=== PATIENT | male | born 1955 | race Caucasian/White ===

== ENCOUNTER → 2016-08-21 | Outpatient (CLI) | payer BC ==
[~2016-08-21] MED LIST: DOXYCYCLINE 10100 MG PO; NORCO 325 MG-7.1 TAB PO; XARELTO20 MG PO
== END ==
LOC: COL.LAB 10:50
DX: Z86.14 Personal history of Methicillin resistant Staphylococcus aureus infection (principal)

== ENCOUNTER → 2017-03-25 | Outpatient (CLI) | payer BC | LOC: ZCOL.LAB 16:28 | DX: Z11.8 Encounter for screening for other infectious and parasitic diseases (principal) ==

== ENCOUNTER 2023-05-04 06:57 | Day surgery (SDC) | payer MEDICARE, OTHER ==
[~2023-05-04] VITALS: Ht 170.5 cm; Wt 98.0 kg
[2023-05-04] VITALS (10 sets, daily range): BP systolic 103–130; BP diastolic 62–80; PULSE 50–62; TEMP 98
[2023-05-04 07:56] LABS: BASO # 0.1 K/mm3 (0.0-0.2); BASO % 1.2 % (0.0-2.0); EOS # 0.4 K/mm3 (0.0-0.7); EOS % 5.1 % (0.0-4.0); GRAN # 4.5 K/mm3 (1.4-6.5); GRAN % 58.9 % (42.2-75.2); HEMATOCRIT 40.5 % (42.0-52.0); HEMOGLOBIN 14.5 g/dl (13.5-18.0); LYMPH # 1.7 K/mm3 (1.2-3.4); LYMPH % 22.4 % (20.0-51.0); MEAN CELL VOLUME 95 fl (80.0-100.0); MEAN CORPUSCULAR HEMOGLOBIN 34 pg (27-31); MEAN CORPUSCULAR HGB CONC 36 g/dl (33.0-37.0); MONO # 0.9 K/mm3 (0.1-0.6); PLATELET COUNT 213 K/mm3 (130-400); RED BLOOD COUNT 4.26 M/mm3 (4.20-5.60); REDCELL DISTRIBUTION WIDTH-CV 12.9 % (11.5-14.5)
[2023-05-04 08:09] LABS: INR 1.1 (0.8-3.0); PROTHROMBIN TIME 12.5 SECONDS (9.7-12.8)
[2023-05-04 08:13] LABS: CALCIUM 9.4 mg/dL (8.4-10.2); CREATININE, serum 1.09 mg/dL (0.72-1.25); POTASSIUM 4.1 mmol/L (3.5-4.5)
[2023-05-04] MEDS ORDERED: KAPSPARGO SPRIN50 MG PO (08:14)
[2023-05-04] MEDS ORDERED: COMPLETE MULTI1 TAB PO (08:15)
[2023-05-04] MEDS ORDERED: CRESTOR 10MG10 MG PO (08:15)
[2023-05-04] MEDS ORDERED: ASPIRIN 81M81 MG/TA2 PO (08:15)
[2023-05-04 08:20] LABS: PARTIAL THROMBOPLASTIN TIME 20.9 SECONDS (26.0-37.0)
--- NOTE | 2023-05-04 09:18 | NUR ---
Refer to [facility] report for procedural sedation notes
[2023-05-04] MEDS ORDERED: TIAZAC120 MG PO (10:06)
--- NOTE | 2023-05-04 13:24 | NUR ---
pt discharged at approx 1300 today. pt was assisted to main lobby via wheelchair and was accompanied by . pt's right radial dressing was clean dry and intact upon discharge. pt right radial incision site remained free from signs of hematoma and bleeding. pt was given discharge instruction and verbalized understanding prior to discharge. pt free from acute concerns and complaints at time of discharge.
== END 2023-05-04 13:00 | disposition home or self-care (01) ==
LOC: COL.CAR 06:57
PROVIDERS: Internal Medicine Cardiovascular Disease
DX: I10 Essential (primary) hypertension (principal); I47.10 Supraventricular tachycardia, unspecified; R94.39 Abnormal result of other cardiovascular function study; R07.89 Other chest pain; E78.5 Hyperlipidemia, unspecified; Z87.891 Personal history of nicotine dependence
CPT/HCPCS: J1644; J2250; J3010